=== PATIENT | male | born 1970 | race Caucasian/White ===

== ENCOUNTER → 2024-05-31 08:35 | Outpatient (CLI) | payer OTHER, SELFPAY ==
--- NOTE | 2024-05-31 08:39 | DI.RAD.S_ITS ---
PROCEDURE: FL BARIUM SWALLOW INDICATIONS: DYSPHAGIA COMPARISON: None. FINDINGS: Function: There is no radiographic evidence for aspiration or penetration. There is normal esophageal peristalsis. There was slight elicted gastroesophageal reflux. There is normal transit of a calibrated barium tablet through the esophagus into the stomach. Small size hiatal hernia. Morphology: Air-contrast images demonstrate normal mucosal morphology. Single contrast views show no esophageal strictures, extrinsic mass effects, or diverticula. Limited images of the stomach demonstrate normal appearance. IMPRESSION: Slight gastroesophageal reflux with small size hiatal hernia. Dictated by: Antony Gonzalez [facility] Interpreted: Timothy Roth MD on 05/31/2024 at 9:58 Approved by: Timothy Roth M.D. on 05/31/2024 at 17:27
== END ==
PROVIDERS: PCP Family Medicine; Referring Provider Family Medicine; Visit Provider Family Medicine
DX: R13.10 Dysphagia, unspecified (principal); K44.9 Diaphragmatic hernia without obstruction or gangrene
CPT/HCPCS: 74220